=== PATIENT | male | born 1945 | race Caucasian/White ===

== ENCOUNTER 2025-04-25 15:16 | Inpatient (IN) | payer OTHER, MEDICAID ==
[~2025-04-25] VITALS: Ht 175.3 cm; Wt 67.5 kg
[2025-04-25 15:55] LABS: PLATELET COUNT (AUTO) 238 K/uL (150-450); RED BLOOD CELL COUNT(AUTO) 3.68 MIL/uL (4.50-5.90); RED CELL DISTRIBUTION WIDTH 14.7 % (11.5-14.5); WHITE BLOOD COUNT (AUTO) 9.8 K/uL (4.5-11.0)
[2025-04-25 16:01] LABS: CALCIUM, TOTAL 8.0 mg/dL (8.8-10.5); CREATININE 1.18 mg/dL (0.60-1.30); GLOMERULAR FILTR. RATE CALC 60 mL/min (>60); GLUCOSE,RANDOM 95 mg/dL (70-110); SODIUM SERUM 137 mmol/L (136-145); UREA NITROGEN, BLOOD 14 mg/dL (7-18)
[2025-04-25 16:08] LABS: CREATINE KINASE, TOTAL ONLY 56 U/L (39-308)
[2025-04-25 16:13] LABS: TROPONIN I-HIGH SENSITIVITY 21 ng/L (<76)
[2025-04-25 16:16] LABS: LACTIC ACID 2.3 mmol/L (0.4-2.0)
[2025-04-25] MEDS: SODIUM CHLORIDE 0.9% 1,300 ML IV ONE (17:21)
[2025-04-25] MEDS: CefTRIAXone 1 GM/DEXTROSE 50 ML IV ONE (17:22)
[2025-04-25] MEDS ORDERED: ALBU18HF12 PO (20:00)
[2025-04-25] MEDS ORDERED: FLUT1BLS23 PO (20:00)
[2025-04-25] MEDS ORDERED: ESCI-8 PO (20:00)
[2025-04-25] MEDS ORDERED: ONDANSETRON HCL 4 MG/2 ML VIAL IVP PRN (20:00)
[2025-04-25] MEDS ORDERED: IPRATROPIUM BROMIDE 0.5 MG/2.5 ML NEB SOLUTION NEB PRN (20:00)
[2025-04-25] MEDS ORDERED: KETO-100 OU (20:00)
[2025-04-25] MEDS ORDERED: TAMS0.4C94 PO (20:00)
[2025-04-25] MEDS ORDERED: ALBUTEROL SULFATE 2.5 MG/0.5 ML NEB SOLUTION NEB PRN (20:00)
[2025-04-25] MEDS ORDERED: FERR325T23 PO (20:00)
[2025-04-25] MEDS ORDERED: FLUT16SP NASAL (20:00)
[2025-04-25] MEDS ORDERED: ZOLPIDEM TARTRATE 5 MG TABLET PO PRN (20:00)
[2025-04-25] MEDS ORDERED: MAGNESIUM HYDROXIDE SUSPENSION 30 ML UDCUP PO PRN (20:00)
[2025-04-25] MEDS ORDERED: DOCU-412 PO (20:00)
[2025-04-25] MEDS ORDERED: FAMO20 PO (20:00)
[2025-04-25] MEDS ORDERED: MORPHINE SULFATE 4 MG/ML VIAL IVP PRN (20:00)
[2025-04-25] MEDS ORDERED: ASPI-1444 PO (20:00)
[2025-04-25] MEDS ORDERED: HYDROCODONE/ACETAMINOPHEN 5-325 MG TABLET PO PRN (20:00)
[2025-04-25] MEDS ORDERED: ACETAMINOPHEN 325 MG TABLET PO PRN (20:00)
[2025-04-25] MEDS ORDERED: ATOR40TA71 PO (20:00)
[2025-04-25] MEDS ORDERED: BISACODYL 10 MG RECTAL RECTAL SUPPOSITORY PR PRN (20:00)
[2025-04-25 21:00] LABS: APPEARANCE,URINE TURBID (CLEAR); GLUCOSE, URINE (UA) NEGATIVE (NEGATIVE); LEUKOCYTE ESTERASE ,URINE MODERATE (NEGATIVE); NITRATE,URINE POSITIVE (NEGATIVE); OCCULT BLOOD,URINE NEGATIVE (NEGATIVE); SPECIFIC GRAVITIY, URINE 1.014 (1.003-1.030)
[2025-04-25] MEDS ORDERED: [UNRECOGNIZED DRUG - OTHER] OU SCH (21:00)
[2025-04-25 21:11] LABS: SQUAMOUS EPITHELIAL CELL,UR Moderate /LPF (None Seen)
[2025-04-26] MEDS: HEPARIN SODIUM,PORCINE 5,000 UNITS/ML VIAL SQ SCH
[2025-04-26 04:00] VITALS: BP 138/69; PULSE 65; RESP 18; TEMP 98.6; O2SAT 98
[2025-04-26 08:00] VITALS: BP 143/65; PULSE 61; RESP 18; TEMP 98.4; O2SAT 97
[2025-04-26 08:06] LABS: PLATELET COUNT (AUTO) 233 K/uL (150-450); RED BLOOD CELL COUNT(AUTO) 3.64 MIL/uL (4.50-5.90); RED CELL DISTRIBUTION WIDTH 14.8 % (11.5-14.5); WHITE BLOOD COUNT (AUTO) 7.0 K/uL (4.5-11.0)
[2025-04-26] MEDS: ATORVASTATIN CALCIUM 40 MG TABLET PO SCH (08:13)
[2025-04-26 08:14] LABS: CALCIUM, TOTAL 7.9 mg/dL (8.8-10.5); CREATININE 0.88 mg/dL (0.60-1.30); GLOMERULAR FILTR. RATE CALC > 60 mL/min (>60); GLUCOSE,RANDOM 87 mg/dL (70-110); SODIUM SERUM 135 mmol/L (136-145); UREA NITROGEN, BLOOD 11 mg/dL (7-18)
[2025-04-26] MEDS: ASPIRIN 81 MG DR TABLET PO SCH (08:15)
[2025-04-26] MEDS: ESCITALOPRAM OXALATE 10 MG TABLET PO SCH (08:15)
[2025-04-26] MEDS: FAMOTIDINE 20 MG TABLET PO SCH (08:16)
[2025-04-26] MEDS: FERROUS SULFATE 325 MG EC TABLET PO SCH (08:16)
[2025-04-26] MEDS: TAMSULOSIN HCL 0.4 MG CAPSULE PO SCH (08:16)
[2025-04-26] MEDS: FLUTICASONE/VILANTEROL 100-25 MCG/INH INHALER [14] IH SCH (08:21)
[2025-04-26] MEDS: FLUTICASONE PROPIONATE 50 MCG/SPRAY 16 GM NASAL SPRAY NASAL SCH (08:22)
[2025-04-26 12:00] VITALS: BP 110/58; PULSE 60; RESP 18; TEMP 98.1; O2SAT 96
[2025-04-26 16:15] VITALS: BP 127/66; PULSE 59; RESP 15; TEMP 98.4; O2SAT 98
[2025-04-26 19:51] VITALS: BP 129/66; PULSE 55; RESP 18; TEMP 98.8; O2SAT 97
[2025-04-26 23:39] VITALS: BP 152/73; PULSE 59; RESP 17; TEMP 97.7; O2SAT 97
[2025-04-27 04:06] VITALS: BP 130/62; PULSE 54; RESP 18; TEMP 98.2; O2SAT 96
[2025-04-27 08:15] VITALS: BP 125/73; PULSE 58; RESP 18; TEMP 98.2; O2SAT 97
[2025-04-27 11:22] VITALS: BP 137/64; PULSE 63; RESP 18; TEMP 98.4; O2SAT 98
[2025-04-27 15:00] VITALS: BP 125/67; PULSE 54; RESP 18; TEMP 98.2; O2SAT 95
== END 2025-04-27 16:20 | disposition home or self-care (01) | DRG 74 ==
LOC: EMS 15:16 → EDH 18:13 → 5S 21:43
PROVIDERS: ADMIT Hospitalist; ATTEND Hospitalist
DX: G90.89 Other disorders of autonomic nervous system (principal); N39.0 Urinary tract infection, site not specified; R55 Syncope and collapse; E87.5 Hyperkalemia; I95.9 Hypotension, unspecified
CPT/HCPCS: 70450; 71045; 80048; 81001; 82550; 83605; 83880; 84484; 85025; 87040; 87077; 87086; 87186; 93005; 93306; 93880; 96365; 97116; 97163; 99285; J0696; J1644; J7030; 36415-L1; 36415-TC